=== PATIENT | female | born 1950 | race Caucasian/White ===

== ENCOUNTER 2017-08-19 19:30 | Emergency (ER) | payer MEDICARE, OTHER ==
[~2017-08-19] VITALS: Ht 162.6 cm; Wt 78.9 kg
[~2017-08-19 19:30] MED LIST: AMBIEN 10MG TAB10 MG PO; ASPIRIN 325MG325 MG PO; FISH OIL1000 MG PO; LISINOPRIL 10MG10 MG PO; MAXZIDE 37.5/21 EACH PO
[2017-08-19] MEDS ORDERED: OMEPRAZOLE20 MG PO (19:46)
[2017-08-19] MEDS ORDERED: SIMVASTATIN40 MG PO (19:46)
--- OUTSIDE RECORDS SUMMARY | 2017-08-19 19:46 | External Medical Summary Rpt | CCD ---
Demographics Home Phone Preferred Language Belarusian Marital Status Unknown Islam Affiliation Unknown Race Unknown Ethnic Group Unknown Author Author , RENEE DURAN Address Unknown Phone [email or web address] Immunization Name Date Rout CVX Reac Dose Comm Prov Is Faci e tion ent ider Refu lity Give sed n PPV2 12-1 33 999 Hist STEP No STEP 3 2-20 oric PULM PULM 16 al FTT FTT Info rmat ion - Sour ce Unsp ecif ied Infl 11-2 88 999 Hist STEP No STEP uenz 5-20 oric PULM PULM a, 16 al FTT FTT UF Info rmat ion - Sour ce Unsp ecif ied Infl 01-0 Intr 88 999 Hist FQ11 No FQ11 uenz 9-20 amus oric a, 13 cula al UF r Info rmat ion - Sour ce Unsp ecif ied
--- OUTSIDE RECORDS SUMMARY | 2017-08-19 19:46 | External Medical Summary Rpt | CCD ---
Demographics Home Phone Preferred Language Bulgarian Marital Status Unknown Faith Affiliation Unknown Race Unknown Ethnic Group Unknown Author Author , RENEE DURAN Address Unknown Phone [email or web address] Immunization Name Date Rout CVX Reac Dose [...]
--- OUTSIDE RECORDS SUMMARY | 2017-08-19 19:46 | External Medical Summary Rpt | CCD ---
Author Author [employer] Organization [employer] Address Unknown Phone Unavailable Purpose Continuity of Care Document - through 2016
--- OUTSIDE RECORDS SUMMARY | 2017-08-19 19:46 | External Medical Summary Rpt | CCD ---
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
--- OUTSIDE RECORDS SUMMARY | 2017-08-19 19:46 | External Medical Summary Rpt | CCD ---
Author Author , RENEE DURAN Address Unknown Phone [email or web address] Purpose Continuity of Care Document - 01-18-2012 [...]
[2017-08-19] MEDS ORDERED: ASPIRIN EC325 MG PO (19:47)
[2017-08-19] MEDS ORDERED: FUROSEMIDE 40MG40 M1 PO (19:47)
[2017-08-19] MEDS ORDERED: POTASSIUM CHLO10 MEQ PO (19:48)
[2017-08-19 20:31] LABS: HEMOGLOBIN 14.2 g/dL (12.2-16.2)
--- NOTE | 2017-08-19 21:42 | Emergency Room Report ---
History of Present Illness Time Seen by 2004 Presenting Problem in Triage Pt arrived:Walked Presenting Problem:C/O FACIAL DROOPING AND HEADACHE SINCE AWAKENING THIS AM. 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 N Clinical Suspician of Infection? N Mental Status: 1 - Regular (Normal Baseline) Sepsis Risk:Low Sepsis Risk Have you (or family members/close friends) recently traveled outside the [place]? N If Yes, where/when: Have you had exposure to infectious disease within the past month? N TB? Other? Specify: Source patient, RN notes reviewed, family, old records Exam Limitations no limitations Comment this wf with rt sided reyes which is consistent with her hx of migraines - no fever or rash and no trauma- pt reports tia in past and she and family report no facial changes and has no speech or motor or sensory loss Cardiac Chest Pain Chest pain indicative of cardiac No Timing/Duration this evening Severity moderate ALLERGIES Coded Allergies: No Known Allergies (08/19/17) Home Medications Reported Medications Hydrochlorothiazide W/Triamterene (Maxzide 37.5/25 Tablet) 1 TAB PO DAILY Zolpidem Tartrate (Ambien 10MG) 10 MG PO BEDTIME LISINOPRIL (Lisinopril) 10 MG PO DAILY ASPIRIN (Aspirin 325MG) 325 MG PO DAILY OMEGA-3 FATTY ACIDS/FISH OIL (Fish Oil 1,000 MG Capsule) 1,000 MG PO DAILY Simvastatin (Simvastatin 40MG Tab) 40 MG PO DAILY #90 Omeprazole (Omeprazole 20MG) 20 MG PO DAILY 90 Days ASPIRIN (Aspirin EC) 325 MG PO DAILY Furosemide 40 MG PO BID 30 Days Potassium Chloride (POTASSIUM CHLORIDE 10mEq CAP) 10 MEQ PO PRN PRN POTASSIUM 90 Days History Medical History General CAD? No Angina: No RI: No Hypertension? Yes Hyperlipidemia? Yes CHF? No DVT? No PE? No COPD? Yes Asthma? No Anemia? No GERD? No Gastric ulcers? No GI Bleed? No Hernia? No Thyroid Problems? No Hypothyroidism? No CVA? Yes Seizures? No Diabetes? No Renal Insuffiency? No End Stage Renal Disease? No UTI? No Stones? No BPH? No GB Disease: Yes Nephritic Syndrome? No Asplenia? No Hepatitis? No Sickle Cell Disease? No Arthritis? No Migraines? No Cataracts? No Glaucoma? No MRSA? No HIV? No TB? No Anxiety? No Depression? No Cancer? Yes Site: CERVIX Immunization Hx DT/Tetanus 5-10 YRS Flu LAST YEAR Pneumonia NEVER Surgical Hx Previous Surgery?Y GALLBLADDER BREAST SURGERY D&C X2 CAROTID ARTERY Family History Family Hx Diabetes Yes CAD Yes Hypertension Yes Hyperlipidemia Yes Cancer Yes TB No Social History Smoking Hx Smoker: Former Smoker Tobacco: No Alcohol Alcohol: No Drugs none Additionial History Additional History no relief with her pain meds at home Review of Systems All Other Systems Reviewed and Negative Constitutional denies fever Eyes denies drainage ENT denies: ear discharge, epistaxis, throat pain. Respiratory denies cough, denies shortness of breath, denies wheezing Cardiovascular denies chest pain, denies syncope Gastrointestinal denies abdominal pain, denies diarrhea, denies vomiting Genitourinary denies: dysuria, frequency, hesitancy, hematuria. Musculoskeletal denies back pain, denies joint pain, denies neck pain Skin denies rash Psychiatric/Neurological see HPI, headache, denies seizure, denies tingling, denies weakness Physical Exam Vital Signs Vital Signs Date Time Temp Pulse Resp B/P Pulse O2 O2 Flow FiO2 Ox Delivery Rate 08/19 2103 97.9 72 20 146/97 95 08/19 2018 97.9 64 20 155/94 98 08/19 2000 97.9 66 20 199/104 97 08/19 1944 97.7 65 18 149/73 98 08/19 193 97.7 65 18 149/73 98 - WBC >12,000 or <4,000 or 10% bands? 2 or more SIRS Criteria Met? B/P:146/97 MAP:135 Creatinine >2.0? UA output<0.5ml/kg/hr for 2 hrs? Platelet count >100,000? Lactate >2.0mmol/1? INR >1.2 or PTT > than 60 sec? Evidence of Organ Dysfunction? Provider documented clinical suspician of infection? N Sepsis Criteria Count: 1 Sepsis Risk: Low Sepsis Risk General Appearance no apparent distress Eye Exam - bilateral eye PERRL, bilateral eye EOMI Ear, Nose, Throat normal ENT inspection Neck supple, no bruits Respiratory Status No: respiratory distress. Lung Sounds bilateral: lungs clear. 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 No Results/Orders Laboratory Tests 08/19/172014: Sodium 135 L, Potassium 4.2, Chloride 103, Carbon Dioxide 27, BUN 13, Creatinine 1.1 H, Estimated Creat Clear 61, Estimated GFR (MDRD) 49 L, Glucose 139 H, Calcium 9.3, Total Bilirubin 0.4, AST 21, ALT 23, Alkaline Phosphatase 52, Total Protein 7.2, Albumin 3.9, Globulin 3.3 H, Albumin/Globulin Ratio 1.2, WBC 6.6, RBC 4.59, Hgb 14.2, Hct 42.3, MCV 92.3, RDW 12.9, Plt Count 258, MPV 7.5, Gran % 79.4, Gran # 5.2, Lymphocytes % 15.0, Monocytes % 4.8, Eosinophils % 0.4, Basophils % 0.3, Lymphocytes # 1.0, Monocytes # 0.3, Eosinophils # 0.0, Basophils # 0.0, PUBS MCHC 33.4, MCH 30.9 Current Medication Orders Sig/Milly Start time Last Medication Dose Route Stop Time Status Admin Ondansetron HCl 4 MG ONCE ONE 08/19 2030 DC 08/19 IV 08/19 Sodium Chloride 1,000 ML .Q1H1M 08/19 2030 DC 08/19 IV 08/19 Sodium Chloride 10 ML PRN PRN 08/19 2030 AC IV 08/20 2019 Sodium Chloride 10 ML PRN PRN 08/19 2015 AC IV 08/20 2008 Ondansetron HCl 0 .STK-MED ONE 08/19 2003 DC .ROUTE Sodium Chloride 1,000 ML .STK-MED ONE 08/19 2003 DC IV Orders Procedure Date/time Status DIET-NOTHING BY MOUTH 08/[address] HEAD W/O CONTRAST 08/[address] HEAD REQ 08/19 2010 Complete IV SALINE LOCK 08/19 2010 Active CBC WITH AUTO DIFF 08/19 2010 Complete CHEM 12 PROFILE 08/19 2010 Complete XRAY/CT/US XRAY/CT/US CT head CT interpretation by discussed w/radiologist Time results known: 2199 CT Results normal/NAD Departure Departure Time of Disposition 2199 Disposition DC Home or Self Care(routine) Clinical Impression Primary Impression: Headache Qualifiers: Headache type: unspecified Headache chronicity pattern: acute headache Intractability: not intractable Qualified Code: R51 - Headache Condition STABLE Patient Instructions DI for Headache Additional Instructions call pcp for follow up and recheck if needed Discharge Counseling Counseled pt/family regarding diagnosis, test results, medications/RX, follow up needs ED Critical Care Critical Care No at 2202
[2017-08-19 22:42] VITALS: BP 162/84
--- NOTE | 2017-08-20 08:09 | RADIOLOGY REPORT PS360 ---
CT HEAD W/O CONTRAST COMPARISON: CT scan of brain noncontrast 12/22/2010 HISTORY: Headache, nausea and vomiting TECHNIQUE: Multiaxial scans obtained from base skull to the vertex and were performed without IV contrast. FINDINGS: The base of skull appears normal, the mastoids are clear. The ventricular system is normal. There is no ischemic infarct or bleed and is no extra-axial fluid collections. The sylvian fissures and cortical sulci are somewhat prominent particularly over the frontal lobes. The bony calvarium appears intact. IMPRESSION: Findings of mild frontal cortical atrophy, no acute intracranial pathology noted, I agree with the [facility] report
--- NOTE | 2017-08-20 08:09 | RADIOLOGY REPORT PS360 ---
CT HEAD W/O CONTRAST COMPARISON: CT scan of brain noncontrast 12/22/2010 HISTORY: Headache, nausea and vomiting TECHNIQUE: Multiaxial scans obtained from base skull to the vertex and were performed without IV contrast. FINDINGS: The base of skull appears normal, the mastoids are clear. The ventricular system is normal. There is no ischemic infarct or bleed and is no extra-axial fluid collections. The sylvian fissures and cortical sulci are somewhat prominent particularly over the frontal lobes. The bony calvarium appears intact. IMPRESSION: Findings of mild frontal cortical atrophy, no acute intracranial pathology noted, I agree with the [facility] report
[2017-08-28] MEDS ORDERED: TRAZODONE100 MG PO (05:18)
[2017-08-28] MEDS ORDERED: CORGARD 40MG TA40 MG PO (09:29)
[2017-08-29] MEDS ORDERED: ELIQUIS5 MG PO ×2 (16:51→16:55)
== END 2017-08-19 23:05 | disposition home or self-care (01) ==
LOC: ER 19:30 → UTC 19:30 → ER 19:45 → UTC 19:45 → ER 23:05
PROVIDERS: Emergency Medicine
DX: R51 Headache (principal); I10 Essential (primary) hypertension; Z79.82 Long term (current) use of aspirin; E78.5 Hyperlipidemia, unspecified; J44.9 Chronic obstructive pulmonary disease, unspecified
CPT/HCPCS: J2405